=== PATIENT | female | born 1980 | race Two or more races ===

== ENCOUNTER 2022-08-11 08:58 | Emergency (ER) | payer OTHER ==
[~2022-08-11] VITALS: Ht 162.6 cm; Wt 59.0 kg
[2022-08-11 09:11] VITALS: O2SAT 98
[2022-08-11] MEDS ORDERED: SODIUM CHLORIDE 0.9% 1,000 ML IV ONE (10:00)
[2022-08-11 10:20] LABS: BASOPHILS % 0.8 % (0.0-2.0); EOSINOPHILS % 0.3 % (0.0-5.0); HEMATOCRIT. 40.5 % (36.0-48.0); HEMOGLOBIN. 13.9 g/dL (12.0-16.0); LYMPHOCYTES % 19.7 % (20.0-50.0); MEAN CORPUSCULAR HEMOGLOBIN 29.9 pg (28.0-32.0); MEAN CORPUSCULAR VOLUME 87.3 fL (81.0-99.0); MONOCYTES % 4.8 % (2.0-8.0); NEUTROPHILS % 74.4 % (40.0-76.0); PLATELET 352 x1000/uL (130-400); RED BLOOD CELL COUNT 4.65 mill/uL (4.2-5.4); RED CELL DISTRIBUTION WIDTH 13.1 % (11.6-14.6)
[2022-08-11 10:22] LABS: CHLORIDE 105 mEq/L (98-107)
[2022-08-11 10:28] LABS: ETHANOL BLOOD < 10 mg/dL (-10)
[2022-08-11 11:20] LABS: *AMPHETAMINES SCREEN URINE NEGATIVE (NEGATIVE); *BARBITURATES SCREEN URINE NEGATIVE (NEGATIVE); *BENZODIAZEPINES SCREEN URINE NEGATIVE (NEGATIVE); *COCAINE SCREEN URINE NEGATIVE (NEGATIVE); CANNABINOID URINE SCREEN NEGATIVE (NEGATIVE); METHADONE URINE SCREEN NEGATIVE (NEGATIVE); OPIATES URINE SCREEN NEGATIVE (NEGATIVE); PHENCYCLIDINE URINE SCREEN NEGATIVE (NEGATIVE)
[2022-08-11] MEDS ORDERED: LORAZEPAM 1MG TABLET PO NR (12:45)
[2022-08-11 14:20] VITALS: BP 130/78; PULSE 100; RESP 20; TEMP 98.7
== END 2022-08-11 14:23 | disposition home or self-care (01) ==
LOC: ER 08:58
DX: F41.9 Anxiety disorder, unspecified (principal)
CPT/HCPCS: 36415; 80048; 80305; 80307; 80320; 80329; 81025; 85025; 96360; 96361; 99283; J7030; G0480